=== PATIENT | male | born 1985 | race Caucasian/White ===

== ENCOUNTER 2024-07-24 12:05 | Emergency (ER) | payer OTHER ==
[~2024-07-24] VITALS: Ht 175.3 cm; Wt 68.9 kg
[2024-07-24] MEDS ORDERED: AZIT-12 (12:38)
[2024-07-24 15:53] VITALS: BP 130/83; TEMP 98.5; O2SAT 100
== END 2024-07-24 15:54 | disposition home or self-care (01) ==
LOC: M ED 12:05
DX: S46.221A Laceration of muscle, fascia and tendon of other parts of biceps, right arm, initial encounter (principal); Y92.9 Unspecified place or not applicable; Y93.9 Activity, unspecified; Y99.0 Civilian activity done for income or pay; Z79.2 Long term (current) use of antibiotics

== ENCOUNTER → 2024-12-22 | Outpatient (REF) | payer OTHER ==
[~2024-12-22] MED LIST: AZIT-12
== END ==
LOC: M SMT 13:34
PROVIDERS: ATTEND Urology
DX: Z30.2 Encounter for sterilization (principal)

== ENCOUNTER → 2025-03-09 | Outpatient (REF) | payer OTHER ==
[2025-03-16 18:56] LABS: TESTOSTERONE FREE (DIRECT) 89.6 pg/mL (35.0-155.0); TESTOSTERONE TOTAL FOR T&D 464.0 ng/dL (250-1100)
== END ==
LOC: M LAB REF 17:45
PROVIDERS: ATTEND Physician Assistant Medical
DX: R68.82 Decreased libido (principal)

== ENCOUNTER → 2025-03-09 | Outpatient (REF) | payer OTHER ==
[2025-03-09 10:53] LABS: SEMEN APPEARANCE OPAQUE (OPAQUE); SEMEN VISCOSITY LIQUID (LIQUID); SEMEN VOLUME 2.0 ml (2.0-5.0); WBC CONCENTRATION <=1 M/ml (<=1 M/ml)
== END ==
LOC: M SMT 10:41
PROVIDERS: ATTEND Urology
DX: Z30.8 Encounter for other contraceptive management (principal)